=== PATIENT | female | born 1985 | race Caucasian/White ===

== ENCOUNTER 2017-11-10 14:29 | Outpatient (CLI) | payer OTHER ==
[~2017-11-10 14:29] MED LIST: CATAFLAM50 MG PO; INTESTINEX1 CAP PO; ORPH100T PO; PROTONIX40 MG PO; SURFAK240 MG NGT; VOLTAREN-XR100 MG PO; ZANTAC300 MG PO
== END 2017-11-10 14:42 | disposition home or self-care (01) ==
LOC: SONOGRAMA 14:29
DX: N64.4 Mastodynia (principal); R10.2 Pelvic and perineal pain

== ENCOUNTER 2018-12-11 14:20 | Outpatient (CLI) | payer OTHER | END 2018-12-11 14:22 | disposition home or self-care (01) | LOC: SONOGRAMA 14:20 | DX: N60.11 Diffuse cystic mastopathy of right breast (principal); N60.12 Diffuse cystic mastopathy of left breast ==

== ENCOUNTER 2019-12-02 08:54 | Emergency (ER) | payer OTHER ==
[~2019-12-02] VITALS: Ht 157.5 cm; Wt 54.4 kg
== END 2019-12-02 11:48 | disposition home or self-care (01) ==
LOC: ER 08:54
DX: M94.0 Chondrocostal junction syndrome [Tietze] (principal); R07.89 Other chest pain

== ENCOUNTER 2020-02-28 14:28 | Outpatient (CLI) | payer OTHER | END 2020-02-28 14:39 | disposition home or self-care (01) | LOC: SONOGRAMA 14:28 → MAMO-SONO 14:45 | PROVIDERS: ATTEND Obstetrics & Gynecology | DX: R10.2 Pelvic and perineal pain (principal); N64.4 Mastodynia ==

== ENCOUNTER 2020-10-26 07:16 | Outpatient (CLI) | payer OTHER | END 2020-10-26 15:39 | disposition home or self-care (01) | LOC: RAD 07:16 | PROVIDERS: ATTEND Internal Medicine Gastroenterology | DX: R10.12 Left upper quadrant pain (principal); N64.4 Mastodynia ==

== ENCOUNTER 2020-12-08 12:58 | Outpatient (CLI) | payer OTHER | END 2020-12-08 13:34 | disposition home or self-care (01) | LOC: SONOGRAMA 12:58 | PROVIDERS: ATTEND Surgery | DX: N60.11 Diffuse cystic mastopathy of right breast (principal); N60.12 Diffuse cystic mastopathy of left breast ==

== ENCOUNTER 2021-07-23 07:48 | Outpatient (CLI) | payer OTHER | END 2021-07-23 08:09 | disposition home or self-care (01) | LOC: SONOGRAMA 07:48 | PROVIDERS: ATTEND Obstetrics & Gynecology | DX: R10.84 Generalized abdominal pain (principal) ==

== ENCOUNTER 2021-08-10 22:29 | Inpatient (IN) | payer OTHER ==
[~2021-08-10] VITALS: Ht 157.5 cm; Wt 63.5 kg
--- NOTE | 2021-08-10 22:35 | NUR ---
PATIENT IS RECIEVED SAYING THAT SHE HAS PELVIC PAIN AND VAGINAL BLEEDING SINCE EARLY THIS MORNING. PATIENT IS 15 WEEKS .
--- NOTE | 2021-08-10 23:24 | NUR ---
SE REALIZAN MUESTRAS DE MYA POR ORDEN MEDICA, SE ENVIA A LA MISMA A LABORATORIO SE MANTIENE A PACIENTE EN OBSERVACION.
--- NOTE | 2021-08-10 23:30 | NUR ---
SE OSBORN SONHIENA Kiesha PORTER.
--- NOTE | 2021-08-11 00:20 | NUR ---
VERGARA RE-EVALUA PTE. SE EDUCA A PTE SOBRE [place] MEDICO. TPE REFIERE COMPRENDER. SE REALIZAN MUESTRAS DE LABORATORIO BAJO MEDIDAS ASEPTICAS. SE ADMINISTRA IV'S Y MEDICAMENTOS YAHAIRA ORDEN MEDICA. PTE MANEJADA POR .
--- NOTE | 2021-08-11 02:30 | NUR ---
PTE EXPULSA FETO. SE COLOCA FETO EN FORMALINA. SE NOTIFICA A . SE UBICA A PTE EN CAMA CON BARANDAS ELEVADAS.
[2021-08-11] MEDS ORDERED: PRENATAL + DHA1 EAC1 (04:39)
[2021-08-13] MEDS ORDERED: CONCEPT DHA CA1 EACH (11:01)
== END 2021-08-21 08:34 | disposition home or self-care (01) | DRG 779 ==
LOC: ER 22:29 → SEC-K 08-11 02:04 → LDR 08-11 02:04 → OB/GYN 08-13 13:20
PROVIDERS: ADMIT Obstetrics & Gynecology; ATTEND Obstetrics & Gynecology
DX: O02.1 Missed abortion (principal); O41.1220 Chorioamnionitis, second trimester, not applicable or unspecified; A32.7 Listerial sepsis; O03.87 Sepsis following complete or unspecified spontaneous abortion; Z3A.16 16 weeks gestation of pregnancy

== ENCOUNTER → 2021-08-29 14:04 | Outpatient (CLI) | payer OTHER ==
[~2021-08-29 14:04] MED LIST changes: +CONCEPT DHA CA1 EACH; +PRENATAL + DHA1 EAC1
== END | disposition home or self-care (01) ==
LOC: LAB 14:04
PROVIDERS: ATTEND Obstetrics & Gynecology
DX: Z00.00 Encounter for general adult medical examination without abnormal findings (principal); I10 Essential (primary) hypertension; E03.8 Other specified hypothyroidism; E78.00 Pure hypercholesterolemia, unspecified; N39.0 Urinary tract infection, site not specified; Z11.4 Encounter for screening for human immunodeficiency virus [HIV]; E55.9 Vitamin D deficiency, unspecified; Z21 Asymptomatic human immunodeficiency virus [HIV] infection status; R79.89 Other specified abnormal findings of blood chemistry; A27.89 Other forms of leptospirosis; A41.89 Other specified sepsis

== ENCOUNTER 2021-09-25 12:40 | Outpatient (CLI) | payer OTHER | END 2021-09-25 12:53 | disposition home or self-care (01) | LOC: SONOGRAMA 12:40 | PROVIDERS: ATTEND Surgery | DX: N60.11 Diffuse cystic mastopathy of right breast (principal); N60.12 Diffuse cystic mastopathy of left breast ==

== ENCOUNTER 2021-11-08 07:28 | Outpatient (CLI) | payer OTHER | END 2021-11-08 14:42 | disposition home or self-care (01) | LOC: LAB 07:28 | PROVIDERS: ATTEND Internal Medicine | DX: D64.9 Anemia, unspecified (principal); E11.9 Type 2 diabetes mellitus without complications; E78.00 Pure hypercholesterolemia, unspecified; N39.0 Urinary tract infection, site not specified; E03.8 Other specified hypothyroidism; E55.9 Vitamin D deficiency, unspecified; E16.2 Hypoglycemia, unspecified ==

== ENCOUNTER 2021-12-11 08:06 | Outpatient (CLI) | payer OTHER | END 2021-12-11 08:10 | disposition home or self-care (01) | LOC: NUCLEAR 08:06 | PROVIDERS: ATTEND Internal Medicine | DX: R00.0 Tachycardia, unspecified (principal) ==

== ENCOUNTER 2022-01-01 14:33 | Outpatient (CLI) | payer OTHER | END 2022-01-01 14:47 | disposition home or self-care (01) | LOC: MAMO-SONO 14:33 | PROVIDERS: ATTEND Surgery | DX: N60.11 Diffuse cystic mastopathy of right breast (principal); N60.12 Diffuse cystic mastopathy of left breast ==

== ENCOUNTER 2022-12-17 14:23 | Outpatient (CLI) | payer OTHER | END 2022-12-17 14:36 | disposition home or self-care (01) | LOC: SONOGRAMA 14:23 | PROVIDERS: ATTEND Surgery | DX: N60.11 Diffuse cystic mastopathy of right breast (principal); N60.12 Diffuse cystic mastopathy of left breast ==

== ENCOUNTER 2023-09-24 14:46 | Emergency (ER) | payer OTHER ==
[~2023-09-24] VITALS: Ht 157.5 cm; Wt 49.9 kg
[2023-09-24 18:09] LABS: HEMATOCRIT 41.7 % (36.0-45.00); HEMOGLOBIN 13.9 g/dL (12.0-15.00); MEAN CELL VOLUME 85.8 fL (80.00-100.00); MEAN CORPUSCULAR HEMOGLOBIN 28.5 pg (27.00-32.0); MEAN CORPUSCULAR HGB CONC 33.3 g/dl (32.0-36.0); PLATELET COUNT 268 K/uL (150-450); RED BLOOD COUNT 4.86 M/uL (4.00-6.00); RED CELL DISTRIBUTION WIDTH 13.1 % (11.5-14.5)
[2023-09-24 18:41] LABS: ALBUMIN 4.5 gm/dL (3.4-5.0); BILIRUBIN TOTAL 0.31 mg/dL (0.3-1.2); CALCIUM 9.8 mg/dL (8.5-10.1); CREATININE SERUM 0.66 mg/dL (0.55-1.02); GFR 99.7; POTASSIUM 3.88 mEq/L (3.5-5.1); TOTAL PROTEIN 8.5 gm/dL (6.4-8.2)
== END 2023-09-24 21:11 | disposition home or self-care (01) ==
LOC: ER 14:46
PROVIDERS: Emergency Medicine
DX: J32.9 Chronic sinusitis, unspecified (principal); M62.838 Other muscle spasm; Z20.822 Contact with and (suspected) exposure to COVID-19